=== PATIENT | female | born 1955 | race Caucasian/White ===

== ENCOUNTER 2017-07-01 17:26 | Emergency (ER) | payer MEDICAID ==
[~2017-07-01] VITALS: Ht 160 cm; Wt 81.4 kg
[~2017-07-01 17:26] MED LIST: COZ50 PO; FIORECET PO; LIPI20 PO; MAX PO; SOM350 PO; TEN50 PO; TOR10 PO; ULT50 PO; ZIA10 PO
[2017-07-01 18:32] LABS: BASOPHIL % 0.5 % (0-2); PLATELET COUNT 351 x10^3mcL (130-400); RED CELL DISTRIBUTION WIDTH 13.8 % (11.5-14.5)
[2017-07-01 18:38] LABS: CALCIUM 9.2 mg/dL (8.5-10.1); CARBON DIOXIDE 30.2 mmol/L (21-32); CHLORIDE SERUM 101 mmol/L (98-107); CREATININE SERUM 0.8 mg/dL (0.6-1.0); GFR1 > 60 mL/min; GLUCOSE SERUM 112 mg/dL (74-106); POTASSIUM SERUM 3.6 mmol/L (3.5-5.1); SODIUM SERUM 140 mmol/L (136-145)
[2017-07-01 18:44] LABS: ALKALINE PHOSPHATASE 156 U/L (46-116); ALT/SGPT 100 U/L (14-59); AST/SGOT 60 U/L (15-37); BILIRUBIN TOTAL 0.3 mg/dL (0.20-1.00); CHOLESTEROL 191 mg/dL (<200); HDL CHOLESTEROL 39 mg/dL (40-60); PHOSPHOROUS 3.4 mg/dL (2.5-4.9); URIC ACID 7.4 mg/dL (2.6-6.0)
[2017-07-01 20:23] VITALS: BP 160/87
== END 2017-07-01 20:23 | disposition home or self-care (01) ==
LOC: ED 17:26
PROVIDERS: Emergency Medicine
DX: G43.909 Migraine, unspecified, not intractable, without status migrainosus (principal); R10.84 Generalized abdominal pain; I10 Essential (primary) hypertension; E78.00 Pure hypercholesterolemia, unspecified
CPT/HCPCS: 83880; J1885; J2765

== ENCOUNTER 2017-09-13 19:34 | Emergency (ER) | payer BC ==
[2017-09-13 22:13] LABS: UA SPECIFIC GRAVITY 1.015 (1.005-1.035); microscopic required? YES; urine erythrocyte TRACE (NEGATIVE)
[2017-09-13 22:31] VITALS: BP 115/60
== END 2017-09-13 22:31 | disposition home or self-care (01) ==
LOC: ED 19:34
PROVIDERS: Emergency Medicine
DX: K58.9 Irritable bowel syndrome, unspecified (principal); N39.0 Urinary tract infection, site not specified; G43.909 Migraine, unspecified, not intractable, without status migrainosus; E78.00 Pure hypercholesterolemia, unspecified; I10 Essential (primary) hypertension
CPT/HCPCS: J1885; J2060; J2405